=== PATIENT | female | born 2000 | race Caucasian/White ===

== ENCOUNTER → 2019-07-09 | Day surgery (SDC) | payer OTHER ==
[~2019-07-09] VITALS: Ht 157.4 cm; Wt 68.0 kg
[~2019-07-09] MED LIST: NORCO 5-325 TA1 EACH PO; PENICILLIN VK500 MG PO
--- NOTE | ~2019-07-09 | O ---
[place], [place] OPERATIVE NOTE NAME: PREET MEDEROS UNIT #: [id number] ROOM: DOCTOR: EFRME LUQUE DMD BIRTHDATE: [birth year] DOS: PREOPERATIVE DIAGNOSES: Impacted third molars and anxiety. POSTOPERATIVE DIAGNOSES: Impacted third molars and anxiety. ANESTHESIA: General anesthesia with endotracheal intubation. FLUIDS: Minimal. ESTIMATED BLOOD LOSS: Minimal. COMPLICATIONS: None. CONDITION: To PACU, stable. DESCRIPTION OF PROCEDURE: The patient was brought to the OR and placed in supine position. IV and EKG lines were placed. Endotracheal intubation and general anesthesia was administered. The patient was prepped and draped for oral procedures. Risks and benefits were explained to the patient and parent prior to surgery. Clinical exam and x-rays taken determined complete bony impaction tooth #1 and 17. Soft tissue impaction, tooth #32. PROCEDURES PERFORMED: Full thickness flap in the upper right quadrant with moderate bone removal, complete extraction of tooth #1. Full thickness flap in the lower left quadrant with moderate bone removal and sectioning, complete extraction of tooth #17. A full thickness flap with complete extraction of tooth #32. Sutured with 4-0 Vicryl. Lavaged x 2. Throat pack removed. The patient left the OR in good condition and went to the PACU. EFREM LUQUE DMD CM:OPRECORD:OPERATIVE NOTE [id number] EFREM LUQUE DMD 07/10/19 1734 interface
[2019-07-09 08:54] VITALS: BP 119/65
[2019-07-09 11:10] VITALS: BP 120/69
[2019-07-09 11:25] VITALS: BP 117/71
[2019-07-09 11:40] VITALS: BP 127/66
[2019-07-09 12:00] VITALS: BP 116/61
[2019-07-09 12:12] VITALS: BP 115/63
== END | disposition home or self-care (01) ==
LOC: SDC 07-01 12:30
DX: K01.1 Impacted teeth (principal); K02.9 Dental caries, unspecified; F43.0 Acute stress reaction; F17.210 Nicotine dependence, cigarettes, uncomplicated